=== PATIENT | female | born 1945 | race Caucasian/White ===

== ENCOUNTER 2017-05-02 06:27 | Day surgery (SDC) | payer OTHER ==
[2017-04-28 12:28] VITALS: BMI 32.8
[2017-05-02] MEDS ORDERED: BUPIVACAINE HCL/PF 2.5 MG/ML - 30 ML VIAL IJ ONE (07:19)
[2017-05-02] MEDS ORDERED: EPINEPHrine 1:1,000 1 MG/1 ML - 30ML VIAL (INJECTION) ONE (07:19)
[2017-05-02] MEDS ORDERED: PROPOFOL 20 ML ONE ×2 (07:24)
[2017-05-02] MEDS ORDERED: SUCCINYLCHOLINE CHLORIDE 200 MG/10 ML VIAL ONE (07:24)
[2017-05-02] MEDS ORDERED: MIDAZOLAM HCL 2 MG/2 ML SINGLE DOSE VIAL ONE (07:24)
[2017-05-02] MEDS ORDERED: KETOROLAC TROMETHAMINE 30 MG/1 ML VIAL ONE (07:26)
[2017-05-02] MEDS ORDERED: LIDOCAINE HCL 2% JELLY (5 ML/TUBE) ONE (07:26)
[2017-05-02] MEDS ORDERED: ONDANSETRON 4 MG/2 ML VIAL ONE ×2 (07:26→09:02)
[2017-05-02] MEDS ORDERED: DEXAMETHASONE SOD PHOSPHATE 4 MG/1 ML VIAL ONE (07:26)
[2017-05-02] MEDS ORDERED: ceFAZolin SODIUM 1 GM VIAL ONE (07:26)
[2017-05-02] MEDS ORDERED: BUPIVACAINE HCL/PF 0.25% (2.5MG/ML) 10 ML VIAL IJ ONE (08:07)
[2017-05-02] MEDS ORDERED: oxyCODONE HCL 5 MG TABLET PO PRN ×2 (08:36)
[2017-05-02] MEDS ORDERED: PROMETHAZINE HCL 25 MG/1 ML VIAL IVPUSH PRN (08:36)
[2017-05-02] MEDS ORDERED: ONDANSETRON 4 MG/2 ML VIAL IVPUSH PRN (08:36)
[2017-05-02] MEDS ORDERED: LACTATED RINGERS SOLUTION 1,000 ML IV SCH (08:45)
[2017-05-02 09:39] VITALS: TEMP 97
[2017-05-02 11:03] VITALS: BP 134/58; PULSE 60
--- NOTE | 2017-05-05 00:06 | OP ---
DATE OF OPERATION: 05/02/2017 SURGEON: Lisa Peters MD GERMAN TEACHER: AURELIO Ervin PREOPERATIVE DIAGNOSIS: 1. Left knee mediolateral meniscal tear. 2. Left knee cartilage injury. 3. Left knee synovitis. POSTOPERATIVE DIAGNOSIS: 1. Left knee mediolateral meniscal tear. 2. Left knee cartilage injury. 3. Left knee synovitis. PROCEDURE: 1. Left knee arthroscopy with partial meniscectomy of the mediolateral meniscus. 2. Left knee arthroscopy with chondroplasty and abrasioplasty. 3. Left knee arthroscopy with synovectomy. CPT code 18722, 82262, 50894. FINDINGS: 1. Medial meniscus body and posterior horn tear. 2. Lateral meniscus posterior horn tear. 3. Synovitis of patellofemoral and mediolateral notch area. 4. Antegrade 1 cartilage of the medial femoral condyle and tibial plateau. 5. ACL and PCL are intact. 6. Antegrade 2 cartilage of the lateral tibial plateau and femoral condyle. 7. Central grade 1-2 cartilage injury of the patella and grade 2-4 changes of the patellofemoral trochlea. PROCEDURE: Informed consent was obtained. The patient was taken to the operating room where the left lower extremity was prepped and draped in a sterile fashion. A tourniquet was placed on the left upper thigh but not inflated. Using standard arthroscopic technique, a lateral incision and portal were made which allowed for introduction of the camera into the suprapatellar bursa. This was then taken to the medial joint line where under direct visualization, a medial incision and portal were made. Excessive synovium noted in the medial, lateral, patellofemoral and notch area was removed by the up-biting shaver and Bovie cautery. This was found to bring inflammatory tissue into the joint surface, a source of joint pain and dysfunction. Probing of the medial and lateral meniscus found tears described in the findings. These were removed with an up-biting shaver and taken back to a stable rim. Grade 2-3 degenerative changes were treated with chondroplasty, removing all flaking surfaces with low setting Bovie used along the periphery. Grade 4 changes were treated with abrasion-plasty. All areas of the knee were once again re-examined. The knee was then drained. A single suture was placed on all portals. Sterile dressing was placed. The patient was transferred to the recovery room. LISA PETERS M.D. [id number]
== END 2017-05-02 10:50 | disposition home or self-care (01) ==
LOC: FASU 06:27
PROVIDERS: ATTEND Orthopaedic Surgery
PROC: 0SBD4ZZ Excision of Left Knee Joint, Percutaneous Endoscopic Approach (ICD-10-PCS; 2017-05-02)
PROC: 0SBD4ZZ Excision of Left Knee Joint, Percutaneous Endoscopic Approach (ICD-10-PCS; 2017-05-02)
PROC: 0SBD4ZZ Excision of Left Knee Joint, Percutaneous Endoscopic Approach (ICD-10-PCS; principal; 2017-05-02 08:02)
DX: S83.242A Other tear of medial meniscus, current injury, left knee, initial encounter (principal); S83.282A Other tear of lateral meniscus, current injury, left knee, initial encounter; S83.8X2A Sprain of other specified parts of left knee, initial encounter; M65.862 Other synovitis and tenosynovitis, left lower leg; X58.XXXA Exposure to other specified factors, initial encounter; Y93.9 Activity, unspecified; Y92.9 Unspecified place or not applicable
CPT/HCPCS: 94760

== ENCOUNTER 2019-04-09 10:00 | Day surgery (SDC) | payer OTHER ==
[2019-03-29 09:58] VITALS: BMI 30.3
[~2019-04-09 10:00] MED LIST: BUPIVACAINE HCL/PF 0.25% (2.5MG/ML) 10 ML VIAL IJ ONE
[2019-04-09] MEDS ORDERED: MIDAZOLAM HCL 2 MG/2 ML SINGLE DOSE VIAL ONE (12:03)
[2019-04-09] MEDS ORDERED: ONDANSETRON 4 MG/2 ML VIAL ONE ×2 (12:03→13:11)
[2019-04-09] MEDS ORDERED: DEXAMETHASONE SOD PHOSPHATE 4 MG/1 ML VIAL ONE (12:03)
[2019-04-09] MEDS ORDERED: BUPIVACAINE HCL/PF 2.5 MG/ML - 30 ML VIAL IJ ONE (12:08)
[2019-04-09] MEDS ORDERED: PROPOFOL 20 ML ONE (12:21)
[2019-04-09] MEDS ORDERED: ceFAZolin SODIUM 1 GM VIAL ONE (12:26)
[2019-04-09] MEDS ORDERED: DESFLURANE GAS 240 ML BOTTLE IH ONE (12:47)
[2019-04-09] MEDS ORDERED: BUPIVACAINE HCL/PF 0.25% (2.5MG/ML) 10 ML VIAL IJ ONE (12:55)
[2019-04-09] MEDS ORDERED: ONDANSETRON 4 MG/2 ML VIAL IVPUSH ONE (13:11)
[2019-04-09] MEDS ORDERED: KETOROLAC TROMETHAMINE 30 MG/1 ML VIAL ONE (13:22)
[2019-04-09] MEDS ORDERED: oxyCODONE HCL 5 MG TABLET PO PRN ×2 (13:37)
[2019-04-09] MEDS ORDERED: ONDANSETRON 4 MG/2 ML VIAL IVPUSH PRN (13:37)
[2019-04-09] MEDS ORDERED: KETOROLAC TROMETHAMINE 30 MG/1 ML VIAL IVPUSH ONE (13:40)
[2019-04-09] MEDS ORDERED: HYDROmorphone HCL CARPU-JECT 2 MG/1 ML DISP.SYRIN IVPUSH ONE ×2 (13:41→13:58)
[2019-04-09] MEDS ORDERED: LACTATED RINGERS SOLUTION 1,000 ML IV SCH (13:45)
[2019-04-09] MEDS ORDERED: HYDROmorphone HCL 0.5 MG/0.5 ML SYRINGE ONE ×2 (13:45→13:59)
[2019-04-09] MEDS ORDERED: oxyCODONE HCL 5 MG TABLET ONE (14:15)
--- NOTE | 2019-04-09 14:36 | OP ---
DATE OF OPERATION: 04/09/2019 Done at [facility] SURGEON: Vini Peters MD GEL COAT SPRAYER: AURELIO Ervin PREOPERATIVE DIAGNOSES: 1. Right knee medial and lateral meniscal tear. 2. Right knee cartilage injury. 3. Right knee synovitis. POSTOPERATIVE DIAGNOSES: 1. Right knee medial and lateral meniscal tear. 2. Right knee cartilage injury. 3. Right knee synovitis. PROCEDURE: 1. Right knee arthroscopy with partial meniscectomy medial and lateral meniscus, CPT code 68904. 2. Right knee arthroscopy with chondroplasty and abrasion-plasty, CPT code 06421. 3. Right knee arthroscopy with synovectomy, CPT code 84999. FINDINGS: 1. Medial meniscus nowl-[id number] horn tear. 2. Lateral meniscus central body tear. 3. Synovitis patellofemoral medial and lateral notch area. 4. Diffuse grade 1-2 cartilage injury medial joint line with anterior grade 2-3 changes medial tibial plateau and femoral condyle. 5. ACL and PCL intact. 6. Minor grade 1 change lateral joint line. 7. Grade 1-2 cartilage injury patella with grade 4 changes site of medial patellofemoral trochlea and patellofemoral joint. PROCEDURE: Informed consent was obtained. The patient came to the operating room, where the lower extremity was prepped and draped in a sterile fashion. A tourniquet was placed on the upper thigh, but not inflated. Using standard arthroscopic technique, a lateral incision and portal was made to allow for introduction of the camera into the suprapatellar bursa. This was then taken to the medial joint line, where under direct visualization, a medial incision and portal was made. Excessive synovium noted in the medial, lateral and patellofemoral and notch area was removed by an upbiter, shaver and Bovie cautery. This was found to bring in inflammatory tissue into the joint surface, a source of pain and dysfunction. Probing of the medial and lateral meniscus found tears, as described in the findings. These were removed with the upbiter and shaver and taken back to a stable rim. Grade 2 to 3 degenerative changes were treated with a chondroplasty, removing all flaking surfaces with low-setting Bovie along the periphery to prevent further flaking. Grade 4 changes, as noted, were treated with an abrasoplasty, creating a bleeding surface at the bone/cartilage interface. Aggressive debridement with shaver/mariola created bleeding surface. Micro fracture also done when indicated in findings. All areas of the knee were once again reexamined. The knee was then drained and a single suture was placed in all portals. A sterile dressing was placed and the patient was transferred to the recovery room without complication. The PA listed above was present and assisted at surgery. Their presence was absolutely medically necessary for the completion of the procedure. They helped hold the arthroscopy, pass instruments (and implants when indicated) and the procedure could not have been completed without their assistance. VINI PETERS M.D. [id number]
[2019-04-09 17:08] VITALS: PULSE 75; TEMP 97.8
[2019-04-09 17:16] VITALS: BP 135/71
--- NOTE | 2019-04-14 15:59 | PATH ---
Surgical Pathology Report Patient Name: JT CUMMINGS Med. Rec. #: [id number] /Age/Gender: 1945 (Age: 73) / F Account: [id number] Location: [facility] Taken: 04/09/2019 Received: 04/09/2019 Reported: 04/14/2019 Physicians: Vini Abraham M.D. Specimen(s) Received RIGHT KNEE SHAVINGS Clinical History Right knee arthritis Final Diagnosis KNEE, RIGHT, ARTHROSCOPIC SHAVINGS: FIBROSYNOVIAL TISSUE AND CARTILAGE. Electronically Signed Sharon Bravo M.D. Gross Description Received in formalin, labeled "right knee shavings" is a 3.5 x 2.5 x 0.3 cm. aggregate of tim-yellow soft tissue fragments. A textile designs sales representative portion is submitted in one cassette. /04/13/2019 saudi/04/13/2019
== END 2019-04-09 16:15 | disposition home or self-care (01) ==
LOC: FASU 10:00
PROVIDERS: ATTEND Orthopaedic Surgery
PROC: 0SBC4ZZ Excision of Right Knee Joint, Percutaneous Endoscopic Approach (ICD-10-PCS; 2019-04-09)
PROC: 0SBC4ZZ Excision of Right Knee Joint, Percutaneous Endoscopic Approach (ICD-10-PCS; 2019-04-09)
PROC: 0SBC4ZZ Excision of Right Knee Joint, Percutaneous Endoscopic Approach (ICD-10-PCS; principal; 2019-04-09 12:40)
DX: S83.241A Other tear of medial meniscus, current injury, right knee, initial encounter (principal); S83.281A Other tear of lateral meniscus, current injury, right knee, initial encounter; S83.8X1A Sprain of other specified parts of right knee, initial encounter; M65.861 Other synovitis and tenosynovitis, right lower leg; X58.XXXA Exposure to other specified factors, initial encounter; Y93.9 Activity, unspecified; Y92.9 Unspecified place or not applicable
CPT/HCPCS: 88304-TC; 94760

== ENCOUNTER 2024-06-03 03:51 | Day surgery (SDC) | payer OTHER ==
[2024-06-02 11:56] VITALS: BMI 27.0
[2024-06-03] MEDS: LIDOCAINE HCL 1% PRESERVATIVE FREE - 30ML VIAL IJ ONE ×2 (11:06)
[2024-06-03] MEDS ORDERED: ACETAMINOPHEN 500 MG TABLET (FP) ONE (11:42)
[2024-06-03] MEDS: ACETAMINOPHEN 500 MG TABLET (FP) PO PRN (11:43)
[2024-06-03 11:55] VITALS: BP 144/75; PULSE 58; RESP 16; TEMP 97.6
== END 2024-06-03 12:38 | disposition home or self-care (01) ==
LOC: JASU-SURG 03:51
PROVIDERS: ATTEND Pain Medicine Pain Medicine
PROC: 01HY3MZ Insertion of Neurostimulator Lead into Peripheral Nerve, Percutaneous Approach (ICD-10-PCS; principal; 2024-06-03 11:00)
DX: G89.4 Chronic pain syndrome (principal); M54.2 Cervicalgia
CPT/HCPCS: 64555; C1778; 76000-TC-FY